=== PATIENT | female | born 1980 | race Caucasian/White ===

== ENCOUNTER 2020-09-09 05:32 | Inpatient (IN) ==
[2020-09-09] MEDS ORDERED: Metoclopramide 10 MG/2 ML VIAL IVP ONE (05:48)
[2020-09-09] MEDS ORDERED: Famotidine 20 MG/2 ML VIAL IVP ONE (05:48)
[2020-09-09] MEDS: Ringers Solution, Lactated 1,000 ML IVC SCH ×2 (06:52→07:35)
[2020-09-09 07:29] LABS: Basophils % 0.3 %; Eosinophils # 0.1 K/mcL (0.0-0.6); Eosinophils % 0.9 %; Hematocrit 33.1 % (35.3-44.9); Hemoglobin 10.6 g/dL (11.5-15.4); Immature Granulocytes % 0.9 % (0-4); Lymphocytes # 2.7 K/mcL (0.6-4.6); Lymphocytes % 20.9 %; Mean Corpuscular Hemoglobin 28.3 pg (28.0-33.3); Mean Corpuscular Volume 88.3 fL (83.0-100.0); Mean Platelet Volume 12.4 fL (9.4-12.4); Monocytes # 0.6 K/mcL (0.0-1.3); Monocytes % 4.9 %; Neutrophils # 9.2 K/mcL (1.6-8.9); Platelet Count 190 K/mcL (140-400); Red Blood Count 3.75 M/mcL (3.82-4.97); Red Cell Distribution Width 14.6 % (11.5-14.5); Segmented Neutrophils % 72.1 %; White Blood Count 12.8 K/mcL (4.3-11.1)
[2020-09-09] MEDS ORDERED: CeFAZolin 2,000 MG/50 ML BAG IVPB ONE (07:30)
[2020-09-09] MEDS ORDERED: *HR* Morphine Sulfate/PF 10 MG/10 ML AMPUL ONE (07:42)
[2020-09-09] MEDS ORDERED: *HR* FentaNYL (PF) 100 MCG/2 ML VIAL ONE (07:43)
[2020-09-09] MEDS ORDERED: Ondansetron 4 MG/2 ML VIAL ONE (07:55)
[2020-09-09 08:08] LABS: Amphetamine Screen,Urine Negative ng/mL (Cutoff=1000); Barbiturate Screen,Urine Negative ng/mL (Cutoff=200); Benzodiazepines Screen,Urine Negative ng/mL (Cutoff=200); Cannabinoid Screen,Urine Negative ng/mL (Cutoff = 50); Cocaine Screen,Urine Negative ng/mL (Cutoff= 300); Opiate Screen,Urine Negative ng/mL (Cutoff=300); Phencyclidine Screen,Urine Negative ng/mL (Cutoff=25)
[2020-09-09] MEDS ORDERED: Ondansetron 4 MG/2 ML VIAL IVP PRN ×2 (08:57→12:19)
[2020-09-09] MEDS ORDERED: Promethazine 6.25 MG in Water for inj. (sterile) 20 ML IVPB PRN (08:57)
[2020-09-09] MEDS ORDERED: *HR* Meperidine 25 MG/ML SYRINGE IVP PRN (08:57)
[2020-09-09] MEDS ORDERED: Naloxone 0.4 MG/ML INJ IVP PRN (08:57)
[2020-09-09] MEDS ORDERED: *HR* FentaNYL (PF) 100 MCG/2 ML VIAL IVP PRN (08:57)
[2020-09-09] MEDS ORDERED: Acetaminophen IV 1,000 MG/100 ML BAG IVPB ONE (11:28)
[2020-09-09] MEDS ORDERED: Metoclopramide 10 MG/2 ML VIAL IVP PRN (12:19)
[2020-09-09] MEDS ORDERED: Rho Immune Globulin 1,500 UNIT SYRINGE IM ONE (12:19)
[2020-09-09] MEDS ORDERED: Oxytocin 20 units/ LR 1000 mL 20 UNIT/1,000 ML BAG IVC SCH (12:19)
[2020-09-09] MEDS ORDERED: Sennosides 8.6 MG TABLET PO PRN (12:19)
[2020-09-09] MEDS ORDERED: *HR* OxyCODONE/APAP 5/325 TABLET PO PRN (12:19)
[2020-09-09] MEDS ORDERED: Simethicone 80 MG TAB.CHEW PO PRN (12:19)
[2020-09-09] MEDS: cephALEXin 500 MG CAPSULE PO SCH ×2 (15:10→21:32)
[2020-09-09] MEDS: Acetaminophen 325 MG TABLET PO PRN (18:24)
[2020-09-09] MEDS: *HR* Metformin 500 MG TABLET PO SCH (18:25)
[2020-09-09] MEDS: Ibuprofen 600 MG TABLET PO PRN (21:32)
[2020-09-10] MEDS: Acetaminophen 325 MG TABLET PO PRN ×2 (00:57→16:41)
[2020-09-10 07:49] VITALS: BP 110/72
[2020-09-10 08:11] LABS: Basophils % 0.2 %; Eosinophils # 0.1 K/mcL (0.0-0.6); Eosinophils % 0.7 %; Hematocrit 34.3 % (35.3-44.9); Hemoglobin 10.6 g/dL (11.5-15.4); Immature Granulocytes % 0.5 % (0-4); Lymphocytes # 1.7 K/mcL (0.6-4.6); Mean Corpuscular HGB Conc 30.9 g/dL (31.6-35.5); Mean Corpuscular Hemoglobin 27.9 pg (28.0-33.3); Mean Corpuscular Volume 90.3 fL (83.0-100.0); Mean Platelet Volume 12.2 fL (9.4-12.4); Monocytes # 0.6 K/mcL (0.0-1.3); Monocytes % 5.2 %; Neutrophils # 8.7 K/mcL (1.6-8.9); Platelet Count 173 K/mcL (140-400); Red Cell Distribution Width 14.9 % (11.5-14.5); Segmented Neutrophils % 78.4 %; White Blood Count 11.1 K/mcL (4.3-11.1)
[2020-09-10] MEDS ORDERED: Prenatal Vit/FA 1 EACH TABLET PO SCH (09:00)
[2020-09-10] MEDS: cephALEXin 500 MG CAPSULE PO SCH (16:40)
[2020-09-10] MEDS: Ibuprofen 600 MG TABLET PO PRN (16:40)
[2020-09-10] MEDS: *HR* Metformin 500 MG TABLET PO SCH (16:41)
== END 2020-09-10 18:45 | disposition home or self-care (01) | DRG 787 ==
LOC: 1NENULAB 05:32 → 1NENUOBS 11:07
PROVIDERS: ADMIT Obstetrics & Gynecology; ATTEND Obstetrics & Gynecology